=== PATIENT | female | born 1995 | race Caucasian/White ===

== ENCOUNTER 2018-06-19 10:59 | Day surgery (SDC) | payer OTHER, SELFPAY ==
[2018-06-14 12:35] VITALS: BMI 24.3
[2018-06-19] VITALS (7 sets, daily range): BP systolic 120–138; BP diastolic 79–96; PULSE 67–100; RESP 12–19; TEMP 36.3–37.1; O2SAT 96–100; BMI 24.3
--- NOTE | 2018-06-19 11:37 | SUR.PREOP ---
no glucose test needed per dr. hood
[2018-06-19] MEDS: LACTATED RINGERS 1,000 ML 42 ML IV ×2 (11:42→13:08)
--- NOTE | 2018-06-19 12:04 | PM.PREOP ---
Pre-operative Note Interval Note Pre-op Check: Yes History & Physical Reviewed by Physician, Yes Exam Performed and Yes History & Physical exam performed today by Physician Changes: No
--- NOTE | 2018-06-19 12:59 | SUR.OPER ---
Lithotomy on padded OR bed, head on pillow, arms secured tucked and gel padded. Legs secured in padded yellow fins stirrups.
[2018-06-19] MEDS: BUPIVACAINE 0.5% W/ EPI (PF) VIAL 30 ML INJ (13:05)
[2018-06-19] MEDS: PHENAZOPYRIDINE 100 MG TABLET PO (14:13)
[2018-06-19] MEDS: OXYCODONE/ACETAMINOPHEN 5/325 TABLET 1 TAB PO (14:13)
--- NOTE | 2018-06-19 14:14 | P.OP_ITS ---
Operative Date/Time/Diagnoses Date of procedure: 06/19/18 Time of procedure: 13:57 Pre-op diagnosis: 1. Chronic pelvic pain 2. Right para ovarian cyst 3. Irritable bladder Post-op diagnosis: same Procedure & Clinicians Procedure: Laparoscopic right paraovarian cystectomy [place] distention of the bladder Same procedure as scheduled: Yes Indications: Six month history of increasing lower abdominal pain, bloating, and urinary urgency and frequency Surgeon: Ángel Tom Senior Marketing Associate: Victorina Reynoso Anesthesia Type: General Operative Notes Findings: Examination under anesthesia revealed a normal sized anteverted uterus and normal adnexae Operative findings included a normal uterus, left tube and ovary, right tube and ovary and a 4 x 3 cm right paraovarian cyst. There was no evidence of endometriosis in either ovarian fossa, posterior or anterior cul-de-sac or ovary. The appendix was normal and the liver edge and gallbladder were normal. Closure Type: primary Specimen(s): none sent Applied: catheter Estimated Blood Loss (mL): 10 Blood products transfused: none Procedure in detail: The patient was brought to the operating room and placed supine on the operating table. She was given general oral endotracheal anesthesia and placed in low lithotomy stirrups. A time-out was performed. An examination under anesthesia was performed. A speculum was placed in her vagina and the cervix was grasped with a Hulka tenaculum. Attention was returned to the abdomen where the umbilicus was infiltrated with 8 cc of 0.5% Marcaine, and a stab incision was made in the umbilicus. Veress needle was introduced into the abdominal cavity and its position verified by hanging drop technique. The abdomen was insufflated to 2 L of carbon dioxide and the Veress needle was removed and replaced by the laparoscopic trocar and sleeve with the laparoscope in place allowing direct visualization of entry into the abdomen. Because of the finding of the right paraovarian cyst, right and left lower quadrant 5 mm trocars were placed lateral to the inferior epigastric vessels. Each site was infiltrated with 5 cc of 0.5% Marcaine, followed by a stab incision and placement of a 5 mm trocar under direct visualization. Laparoscopic scissors were used to coagulate and then puncture the para ovarian cyst allowing it to drain. When the rest of the pelvic anatomy was found to be normal the abdomen was desufflated to the extent possible and trocars were removed under direct visualization. Each trocar site was closed with 4 O Monocryl and covered with Dermabond after which attention was turned to the bladder where using a 3 mm cystoscope, the bladder was inspected. The Hulka tenaculum was removed. There was no evidence of Hunner's ulcers or obvious trabeculations. The bladder was hydro distended to 950 cc for 2 min at a pressure of 100 cm of water. Petechial hemorrhages were noted and the effluent was noted to be cloudy consistent with hematuria. The patient was then awakened and taken to the recovery room in stable condition. Complications: none Condition: stable Disposition: PACU Plan for aftercare: Home
--- NOTE | 2018-06-19 14:35 | SUR.PHASEII ---
PT TO PHASE 2, UP TO BR TO VOID, GAIT STEADY, TOLERATING PO FLUIDS WELL.
== END 2018-06-19 15:20 ==
PROVIDERS: Visit Provider Obstetrics & Gynecology
PROC: (CPT 49320; principal; 2018-06-19 12:15)
PROC: (CPT 58662; 2018-06-19 12:15)
DX: N83.201 Unspecified ovarian cyst, right side (principal); N32.89 Other specified disorders of bladder
CPT/HCPCS: 49322; 52260; J0330; J1100; J2405; J2704; J3010

== ENCOUNTER 2019-06-05 07:30 | Outpatient (RCR) | payer OTHER, SELFPAY ==
--- NOTE | 2019-01-23 09:39 | PT.OPPOC ---
Current Diagnoses Other bursitis of hip, right hip (01/23/19) Other ovarian cyst, right side (01/23/19) Pelvic and perineal pain (01/23/19) Provider Visit Care Team Role Provider Type Other Providers Specialty: Address: Phone: Fax: Email: Ángel Tom MD Attending Provider Non-Staff Specialty: CLINICAL TRIAL SPECIALIST Address: [address] [place] [address], [id number] Email: [email or web address] Plan Of Care PT-OP-T Assessment and Plan Start: 01/23/19 07:26 Freq: Status: Active Protocol: Document 01/23/19 07:30 AMB (Rec: 01/26/19 09:23 AMB [email or web address]) Physical Therapy Assessment Rehab Potential Rehabilitation Potential Good Evaluation Complexity Number of Personal Factors/Comorbidities 1-2 Number of Body Systems Impaired 3 Clinical Presentation at Evaluation Evolving Impairments Impairments Functional Activities Pain Strength Goals Three Impairment R buttock pain Short Term Goal (STG) Jaquelin will sit for 30 minutes with 3/10 pain or less . STG Duration 4 weeks Two Impairment Abdominal pain Short Term Goal (STG) Jaquelin will be independent with a self myofascial release program to address her abdominal pain and bloating. STG Duration 4 weeks Care Home Goal (LTG) Jaquelin will be able to engage in intercourse without abdominal pain. LTG Duration 8 weeks One Impairment Stress incontinence Short Term Goal (STG) Jaquelin will be independent with a pelvic floor strengthening program. STG Duration 4 weeks Care Home Goal (LTG) Jaquelin will sneeze without leaking urine. LTG Duration 8 weeks Assessment Summary Assessment Jaquelin attends physical therapy with multiple abdominal and pelvic impairments. First we will address the pain that radiates into her abdomen with palpation of the R levator ani and obterator internus, then we will need to strengthen her pelvic floor. Her sitting pain is likely a seperate issue, but with her SI assymmetries that is likely contributing to her pelvic floor weakness as well. Physical Therapy Plan Frequency and Duration Frequency of Treatment 1x/Week Duration of Treatment 10 weeks Plan of Care Start Date 01/23/19 Plan of Care End Date 04/03/19 Therapeutic Interventions Therapeutic Interventions Home Exercise Program Manual Therapy Neuromuscular Re-education Self-Care/Home Management Taping Therapeutic Activities Therapeutic Exercises Modalities Biofeedback Cold Pack/Ice Massage Electric Stimulation Hot Packs Next Visit Focus/Plan Next Note Type Treatment Note Next Visit Plan Manual therapy to release pelvic floor tightness, then address pelvic floor weakness, address SI/hamstring stability. Plan of Care Dates Plan of Care Start Date 01/23/19 Plan of Care End Date 04/03/19 Please Sign and Return: I have reviewed this Plan of Care and certify that the skilled therapy services above are required to meet the patient?s needs. Physician Signature Date Printed Name and Credentials Clinical Instructor Signature Printed Name and Credentials
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
--- NOTE | 2019-01-30 10:26 | PT.OTN ---
Current Diagnoses Other ovarian cyst, right side (01/30/19) Physical Therapy Treatment Note PT-OP-A Visit Information Start: 01/23/19 07:26 Freq: Status: Active Protocol: Document 01/30/19 07:30 AMB (Rec: 01/30/19 10:26 AMB [email or web address]) Out-Patient Physical Therapy Visit Information Visit Information Visit Type Treatment Note Visit Start Time 07:30 Visit Stop Time 08:15 Total Visit Minutes 45 Visit Number 2 PT-OP-B Current Condition Start: 01/23/19 07:26 Freq: Status: Active Protocol: Document 01/23/19 07:30 AMB (Rec: 01/25/19 16:04 AMB [email or web address]) Current Condition History of Current Condition Onset Date May 2018 Current Complaints abdominal pain, right ischial tuberosity pain, stress incontinence History of Current Condition Jaquelin attends physical therapy with history of laproscopy to remove an ovarian cyst. She felt that her pain was better after surgery for a few months, but it is back now. She states that she has a known cyst on her R fallopian tube but is unsure if she will be having surgery again due to insurance restrictions. She also notes a cramping sensation after urination that lasts for about 20 minutes. Seperately, she notices R ischial tuberosity pain with extended sitting or lying down that has been present since before her surgery. She does reports some small leaks or urine with sneeze/cough. She reports bloating but no fecal incontinence. No history of / has had difficulty getting . Reports while on control cyst continued to grow. 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 Functional Limitations- Recreation/ Jaquelin notes increased Hobbies abdominal pain after intercourse but denies pelvic floor/perineal pain Personal Factors Other Personal Factors That May Effect hypothyroid, difficulty Therapy/Recovery becoming PT-OP-C Subjective Start: 01/23/19 07:26 Freq: Status: Active Protocol: Document 01/30/19 07:30 AMB (Rec: 01/30/19 10:26 AMB [email or web address]) OP-PT Subjective Patient Comments Patient Comments Pt states she has been more mindful of her pain, and found that when she does a long hold, she tends to use her gluteals, and then gets pain radiating into the left abdomen. She likes the ILU massage, but has not noticed a change in her bowels. she still notices some pain after urination, but has been trying to go every 2 hours, and not hold it or go frequently. PT-OP-I Pelvic Floor Start: 01/23/19 07:26 Freq: Status: Active Protocol: Document 01/23/19 07:30 AMB (Rec: 01/26/19 07:29 AMB [email or web address]) Pelvic Floor Assessment Urine Pelvic Floor Surgery Yes: laproscopic ovarian cyst removal Urinary Symptoms Dysuria Urge Sensation Pain Leakage Size Small Leakage Cause Cough Sneeze Pelvic Clock Pelvic Clock 6-9 Hypertonic Tenderness Tightness Pelvic Clock 9-12 Guarding Hypertonic Tenderness Tightness Pelvic Clock Other Pain radiates into abdomen, pt denies pain at pelvic floor itself Contraction Ability Voluntary Contraction Weak Voluntary Relaxation Moderate Manual Muscle Testing Left 1 Manual Muscle Testing Right 1 Manual Muscle Testing Anterior 2 Manual Muscle Testing Posterior 1 PT-OP-J Posture/Palpation/Skin Start: 01/23/19 07:26 Freq: Status: Active Protocol: Document 01/23/19 07:30 AMB (Rec: 01/26/19 07:29 AMB [email or web address]) Posture Evaluation Comments Posture Comments R anterior rotation in supine. Palpation Assessment Location One Palpation Details Tenderness with palpation over lower abdomen. Denies specific tenderness over ishchial tuberosity, but does have tenderness on medial aspect of ichial tuberosity. PT-OP-K Range of Motion Start: 01/26/19 09:24 Freq: Status: Active Protocol: Document 01/23/19 07:30 AMB (Rec: 01/26/19 09:28 AMB [email or web address]) Hip Goniometric Range of Motion Hip ROM Limitations Comments Pt ROM WFL, no pain with hamstring stretch, but does note greater subjective feeling of stretch on the R. PT-OP-M Strength Start: 01/26/19 09:24 Freq: Status: Active Protocol: Document 01/23/19 07:30 AMB (Rec: 01/26/19 09:27 AMB [email or web address]) Hip Strength Hip Manual Muscle Testing Right Flexion (L2) 4+ Good+ Extension (S1) 4+ Good+ Abduction 4+ Good+ Adduction 4+ Good+ External Rotation 5 Normal Knee Strength Knee Manual Muscle Testing Right Flexion (S2) 5 Normal Extension (L3) 5 Normal Left Flexion (S2) 4 Good Extension (L3) 5 Normal Comments pain with knee flexion PT-OP-Q Treatments Start: 01/23/19 07:26 Freq: Status: Active Protocol: Document 01/30/19 07:30 AMB (Rec: 01/30/19 10:26 AMB [email or web address]) Therapeutic Exercises Supine Exercises 3 Supine Exercise Name instruction in relaxation with kegels 2 Supine Exercise Name piriformis stretch Reps/Minutes 30x2 1 Supine Exercise Name happy baby stretch Reps/Minutes 30x2 Manual Therapy Treatment Soft Tissue Mobilization 2 Body Location R obterator internus Mobilization Type Strumming Sustained Pressure Trigger Point Release 1 Body Location abdomen Comments bladder superiorly, ILU, hip flexor release Manual Traction Lumbar Details L leg pull Manual Techniques 1 Type MET for rotation Comments L leg long PT-OP-T Assessment and Plan Start: 01/23/19 07:26 Freq: Status: Active Protocol: Document 01/30/19 07:30 AMB (Rec: 01/30/19 10:26 AMB [email or web address]) Physical Therapy Assessment Assessment Summary Assessment Continued R obterator internus tightness, focus on relaxation. Discuss dietary triggers, pt could likely increase fiber intake, but otherwise is doing well to avoid common problem foods. Coccyx not painful per se but can get discomfort with sitting, asked to look at pelvic tilt when she gets coccyx pressure. Physical Therapy Plan Next Visit Focus/Plan Next Note Type Treatment Note Next Visit Plan Manual therapy to release pelvic floor tightness, then address pelvic floor weakness, address SI/hamstring stability.
--- NOTE | 2019-02-27 11:37 | PT.OTN ---
Current Diagnoses Other ovarian cyst, right side (02/27/19) Physical Therapy Treatment Note PT-OP-A Visit Information Start: 01/23/19 07:26 Freq: Status: Active Protocol: Document 02/27/19 07:30 AMB (Rec: 02/27/19 08:49 AMB [id number]) Out-Patient Physical Therapy Visit Information Visit Information Visit Type Treatment Note Visit Start Time 07:30 Visit Stop Time 08:15 Total Visit Minutes 45 Visit Number 3 PT-OP-B Current Condition Start: 01/23/19 07:26 Freq: Status: Active Protocol: Document 01/23/19 07:30 AMB (Rec: 01/25/19 16:04 AMB [email or web address]) Current Condition History of Current Condition Onset Date May 2018 Current Complaints abdominal pain, right ischial tuberosity pain, stress incontinence History of Current Condition Jaquelin attends physical therapy with history of laproscopy to remove an ovarian cyst. She felt that her pain was better after surgery for a few months, but it is back now. She states that she has a known cyst on her R fallopian tube but is unsure if she will be having surgery again due to insurance restrictions. She also notes a cramping sensation after urination that lasts for about 20 minutes. Seperately, she notices R ischial tuberosity pain with extended sitting or lying down that has been present since before her surgery. She does reports some small leaks or urine with sneeze/cough. She reports bloating but no fecal incontinence. No history of / has had difficulty getting . Reports while on control cyst continued to grow. 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 She has been trying to do Kegels and workout more. PT-OP-I Pelvic Floor Start: 01/23/19 07:26 Freq: Status: Active Protocol: Document 01/23/19 07:30 AMB (Rec: 01/26/19 07:29 AMB [email or web address]) Pelvic Floor Assessment Urine Pelvic Floor Surgery Yes: laproscopic ovarian cyst removal Urinary Symptoms Dysuria Urge Sensation Pain Leakage Size Small Leakage Cause Cough Sneeze Pelvic Clock Pelvic Clock 6-9 Hypertonic Tenderness Tightness Pelvic Clock 9-12 Guarding Hypertonic Tenderness Tightness Pelvic Clock Other Pain radiates into abdomen, pt denies pain at pelvic floor itself Contraction Ability Voluntary Contraction Weak Voluntary Relaxation Moderate Manual Muscle Testing Left 1 Manual Muscle Testing Right 1 Manual Muscle Testing Anterior 2 Manual Muscle Testing Posterior 1 PT-OP-J Posture/Palpation/Skin Start: 01/23/19 07:26 Freq: Status: Active Protocol: Document 01/23/19 07:30 AMB (Rec: 01/26/19 07:29 AMB [email or web address]) Posture Evaluation Comments Posture Comments R anterior rotation in supine. Palpation Assessment Location One Palpation Details Tenderness with palpation over lower abdomen. Denies specific tenderness over ishchial tuberosity, but does have tenderness on medial aspect of ichial tuberosity. PT-OP-K Range of Motion Start: 01/26/19 09:24 Freq: Status: Active Protocol: Document 01/23/19 07:30 AMB (Rec: 01/26/19 09:28 AMB [email or web address]) Hip Goniometric Range of Motion Hip ROM Limitations Comments Pt ROM WFL, no pain with hamstring stretch, but does note greater subjective feeling of stretch on the R. PT-OP-M Strength Start: 01/26/19 09:24 Freq: Status: Active Protocol: Document 01/23/19 07:30 AMB (Rec: 01/26/19 09:27 AMB [email or web address]) Hip Strength Hip Manual Muscle Testing Right Flexion (L2) 4+ Good+ Extension (S1) 4+ Good+ Abduction 4+ Good+ Adduction 4+ Good+ External Rotation 5 Normal Knee Strength Knee Manual Muscle Testing Right Flexion (S2) 5 Normal Extension (L3) 5 Normal Left Flexion (S2) 4 Good Extension (L3) 5 Normal Comments pain with knee flexion PT-OP-Q Treatments Start: 01/23/19 07:26 Freq: Status: Active Protocol: Document 02/27/19 07:30 AMB (Rec: 02/27/19 08:49 AMB [id number]) Manual Therapy Treatment Soft Tissue Mobilization 2 Body Location R obterator internus Mobilization Type Strumming Sustained Pressure Trigger Point Release Neuro Re-Education Treatment Other Activities 1 Details sEMG 5 sec hold, relax 10 Comments better control with vc PT-OP-T Assessment and Plan Start: 01/23/19 07:26 Freq: Status: Active Protocol: Document 02/27/19 07:30 AMB (Rec: 02/27/19 08:49 AMB [id number]) Physical Therapy Assessment Assessment Summary Assessment Pt is having surgery in 2 weeks for her fallopian tube. MD wants to make sure that her pelvic floor is strong enough with , especially since she already has stress incontinence. Pt's strength was better today. 5 baseline, 20 max. Pt continues to have right sided tightness more than left, vended dilator to help stretch out right side. Physical Therapy Plan Next Visit Focus/Plan Next Note Type Treatment Note Next Visit Plan Manual therapy to release pelvic floor tightness, then address pelvic floor weakness, address SI/hamstring stability.
--- NOTE | 2019-03-07 16:06 | PT.OTN ---
Current Diagnoses Other ovarian cyst, right side (03/07/19) Physical Therapy Treatment Note PT-OP-A Visit Information Start: 01/23/19 07:26 Freq: Status: Active Protocol: Document 03/07/19 07:30 AMB (Rec: 03/07/19 08:16 AMB [id number]) Out-Patient Physical Therapy Visit Information Visit Information Visit Type Treatment Note Visit Start Time 07:30 Visit Stop Time 08:15 Total Visit Minutes 45 Visit Number 4 PT-OP-B Current Condition Start: 01/23/19 07:26 Freq: Status: Active Protocol: Document 01/23/19 07:30 AMB (Rec: 01/25/19 16:04 AMB [email or web address]) Current Condition History of Current Condition Onset Date May 2018 Current Complaints abdominal pain, right ischial tuberosity pain, stress incontinence History of Current Condition Jaquelin attends physical therapy with history of laproscopy to remove an ovarian cyst. She felt that her pain was better after surgery for a few months, but it is back now. She states that she has a known cyst on her R fallopian tube but is unsure if she will be having surgery again due to insurance restrictions. She also notes a cramping sensation after urination that lasts for about 20 minutes. Seperately, she notices R ischial tuberosity pain with extended sitting or lying down that has been present since before her surgery. She does reports some small leaks or urine with sneeze/cough. She reports bloating but no fecal incontinence. No history of / has had difficulty getting . Reports while on control cyst continued to grow. 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 PT-OP-I Pelvic Floor Start: 01/23/19 07:26 Freq: Status: Active Protocol: Document 01/23/19 07:30 AMB (Rec: 01/26/19 07:29 AMB [email or web address]) Pelvic Floor Assessment Urine Pelvic Floor Surgery Yes: laproscopic ovarian cyst removal Urinary Symptoms Dysuria Urge Sensation Pain Leakage Size Small Leakage Cause Cough Sneeze Pelvic Clock Pelvic Clock 6-9 Hypertonic Tenderness Tightness Pelvic Clock 9-12 Guarding Hypertonic Tenderness Tightness Pelvic Clock Other Pain radiates into abdomen, pt denies pain at pelvic floor itself Contraction Ability Voluntary Contraction Weak Voluntary Relaxation Moderate Manual Muscle Testing Left 1 Manual Muscle Testing Right 1 Manual Muscle Testing Anterior 2 Manual Muscle Testing Posterior 1 PT-OP-J Posture/Palpation/Skin Start: 01/23/19 07:26 Freq: Status: Active Protocol: Document 01/23/19 07:30 AMB (Rec: 01/26/19 07:29 AMB [email or web address]) Posture Evaluation Comments Posture Comments R anterior rotation in supine. Palpation Assessment Location One Palpation Details Tenderness with palpation over lower abdomen. Denies specific tenderness over ishchial tuberosity, but does have tenderness on medial aspect of ichial tuberosity. PT-OP-K Range of Motion Start: 01/26/19 09:24 Freq: Status: Active Protocol: Document 01/23/19 07:30 AMB (Rec: 01/26/19 09:28 AMB [email or web address]) Hip Goniometric Range of Motion Hip ROM Limitations Comments Pt ROM WFL, no pain with hamstring stretch, but does note greater subjective feeling of stretch on the R. PT-OP-M Strength Start: 01/26/19 09:24 Freq: Status: Active Protocol: Document 01/23/19 07:30 AMB (Rec: 01/26/19 09:27 AMB [email or web address]) Hip Strength Hip Manual Muscle Testing Right Flexion (L2) 4+ Good+ Extension (S1) 4+ Good+ Abduction 4+ Good+ Adduction 4+ Good+ External Rotation 5 Normal Knee Strength Knee Manual Muscle Testing Right Flexion (S2) 5 Normal Extension (L3) 5 Normal Left Flexion (S2) 4 Good Extension (L3) 5 Normal Comments pain with knee flexion PT-OP-Q Treatments Start: 01/23/19 07:26 Freq: Status: Active Protocol: Document 03/07/19 07:30 AMB (Rec: 03/07/19 16:06 AMB [email or web address]) Therapeutic Exercises Supine Exercises 5 Supine Exercise Name hip flexor stretch Comments 30x2 4 Supine Exercise Name hamstring curl with pf relaxation Comments 10 2 Supine Exercise Name piriformis stretch Reps/Minutes 30x2 1 Supine Exercise Name happy baby stretch Reps/Minutes 30x2 Manual Therapy Treatment Soft Tissue Mobilization 2 Body Location R obterator internus Mobilization Type Strumming Sustained Pressure Trigger Point Release Comments external release only Manual Techniques 2 Type strain counterstrain Comments for adductors and hamstring 1 Type MET for rotation Comments R posterior rotation fix PT-OP-T Assessment and Plan Start: 01/23/19 07:26 Freq: Status: Active Protocol: Document 03/07/19 07:30 AMB (Rec: 03/07/19 16:06 AMB [email or web address]) Physical Therapy Assessment Assessment Summary Assessment Pt with pain reproduction of actively using hamstring, but also at pubic rami and medial ischial tuberosity with palpation. Reinforced functionally dannielle pelvic floor and also working on R sided relaxation. Pt felt better after strain counterstrain. Physical Therapy Plan Next Visit Focus/Plan Next Note Type Treatment Note Next Visit Plan Pt on hold until after her surgery for her fallopian tube . She can then call back if continuing to have right sided ischial tuberosity pain. Probably decrease internal work as she will be actively trying to get .
--- NOTE | 2019-05-29 07:30 | PT.OTN ---
Current Diagnoses Other ovarian cyst, right side (05/29/19) Physical Therapy Treatment Note PT-OP-A Visit Information Start: 01/23/19 07:26 Freq: Status: Active Protocol: Document 05/29/19 07:30 AMB (Rec: 05/30/19 06:32 AMB [email or web address]) Out-Patient Physical Therapy Visit Information Visit Information Visit Type Treatment Note Visit Start Time 07:30 Visit Stop Time 08:15 Total Visit Minutes 45 Visit Number 5 PT-OP-B Current Condition Start: 01/23/19 07:26 Freq: Status: Active Protocol: Document 01/23/19 07:30 AMB (Rec: 01/25/19 16:04 AMB [email or web address]) Current Condition History of Current Condition Onset Date May 2018 Current Complaints abdominal pain, right ischial tuberosity pain, stress incontinence History of Current Condition Jaquelin attends physical therapy with history of laproscopy to remove an ovarian cyst. She felt that her pain was better after surgery for a few months, but it is back now. She states that she has a known cyst on her R fallopian tube but is unsure if she will be having surgery again due to insurance restrictions. She also notes a cramping sensation after urination that lasts for about 20 minutes. Seperately, she notices R ischial tuberosity pain with extended sitting or lying down that has been present since before her surgery. She does reports some small leaks or urine with sneeze/cough. She reports bloating but no fecal incontinence. No history of / has had difficulty getting . Reports while on control cyst continued to grow. 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 She no longer has abdominal pain after sex, but she does note continued bloating depedent upon food choices. She has not had any urinary leaking. She is concerned about a possible diastasis recti. PT-OP-I Pelvic Floor Start: 01/23/19 07:26 Freq: Status: Active Protocol: Document 01/23/19 07:30 AMB (Rec: 01/26/19 07:29 AMB [email or web address]) Pelvic Floor Assessment Urine Pelvic Floor Surgery Yes: laproscopic ovarian cyst removal Urinary Symptoms Dysuria Urge Sensation Pain Leakage Size Small Leakage Cause Cough Sneeze Pelvic Clock Pelvic Clock 6-9 Hypertonic Tenderness Tightness Pelvic Clock 9-12 Guarding Hypertonic Tenderness Tightness Pelvic Clock Other Pain radiates into abdomen, pt denies pain at pelvic floor itself Contraction Ability Voluntary Contraction Weak Voluntary Relaxation Moderate Manual Muscle Testing Left 1 Manual Muscle Testing Right 1 Manual Muscle Testing Anterior 2 Manual Muscle Testing Posterior 1 PT-OP-J Posture/Palpation/Skin Start: 01/23/19 07:26 Freq: Status: Active Protocol: Document 01/23/19 07:30 AMB (Rec: 01/26/19 07:29 AMB [email or web address]) Posture Evaluation Comments Posture Comments R anterior rotation in supine. Palpation Assessment Location One Palpation Details Tenderness with palpation over lower abdomen. Denies specific tenderness over ishchial tuberosity, but does have tenderness on medial aspect of ichial tuberosity. PT-OP-K Range of Motion Start: 01/26/19 09:24 Freq: Status: Active Protocol: Document 01/23/19 07:30 AMB (Rec: 01/26/19 09:28 AMB [email or web address]) Hip Goniometric Range of Motion Hip ROM Limitations Comments Pt ROM WFL, no pain with hamstring stretch, but does note greater subjective feeling of stretch on the R. PT-OP-M Strength Start: 01/26/19 09:24 Freq: Status: Active Protocol: Document 01/23/19 07:30 AMB (Rec: 01/26/19 09:27 AMB [email or web address]) Hip Strength Hip Manual Muscle Testing Right Flexion (L2) 4+ Good+ Extension (S1) 4+ Good+ Abduction 4+ Good+ Adduction 4+ Good+ External Rotation 5 Normal Knee Strength Knee Manual Muscle Testing Right Flexion (S2) 5 Normal Extension (L3) 5 Normal Left Flexion (S2) 4 Good Extension (L3) 5 Normal Comments pain with knee flexion PT-OP-Q Treatments Start: 01/23/19 07:26 Freq: Status: Active Protocol: Document 05/29/19 07:30 AMB (Rec: 06/01/19 11:06 AMB [email or web address]) Therapeutic Exercises Supine Exercises 6 Supine Exercise Name post pelvic tilt Reps/Minutes 10 3 Supine Exercise Name table top alt bent leg lower Comments with PF and TrA Sitting Exercises 1 Sitting Exercise Name single leg deadlift Reps/Minutes 10 PT-OP-T Assessment and Plan Start: 01/23/19 07:26 Freq: Status: Active Protocol: Document 05/29/19 07:30 AMB (Rec: 06/01/19 08:58 AMB [email or web address]) Physical Therapy Assessment Goals Three Impairment R buttock pain Short Term Goal (STG) Jaquelin will sit for 30 minutes with 3/10 pain or less . STG Duration NOT MET Two Impairment Abdominal pain Short Term Goal (STG) Jaquelin will be independent with a self myofascial release program to address her abdominal pain and bloating. STG Duration MET Supply Assistant Goal (LTG) Jaquelin will be able to engage in intercourse without abdominal pain. LTG Duration MET One Impairment Stress incontinence Short Term Goal (STG) Jaquelin will be independent with a pelvic floor strengthening program. STG Duration MET Supply Assistant Goal (LTG) Jaquelin will sneeze without leaking urine. LTG Duration MET Assessment Summary Assessment Jaquelin's symptoms have significantly improved since her surgery. She continues to have her hamstring pain, which limits her sitting, although her return to exercise is seemingly improving this. We will continue to work on her pelvic floor and transversus abdominus strength and coordination as well as hamstring pain for a few more visits so she is independent with a program. Physical Therapy Plan Frequency and Duration Frequency of Treatment 1x/Week Duration of Treatment 4 weeks Plan of Care Start Date 05/29/19 Plan of Care End Date 06/26/19 Therapeutic Interventions Therapeutic Interventions Home Exercise Program Manual Therapy Neuromuscular Re-education Self-Care/Home Management Taping Therapeutic Activities Therapeutic Exercises Modalities Biofeedback Cold Pack/Ice Massage Electric Stimulation Hot Packs Next Visit Focus/Plan Next Note Type Treatment Note Next Visit Plan Progress TrA and pelvic floor stabilization
--- NOTE | 2019-05-29 12:00 | PT.OPPOC ---
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 STG Duration NOT MET Two Impairment Abdominal pain Short Term Goal (STG) Jaquelin will be independent with a self myofascial release program to address her abdominal pain and bloating. STG Duration MET Jail Goal (LTG) Jaquelin will be able to engage in intercourse without abdominal pain. LTG Duration MET One Impairment Stress incontinence Short Term Goal (STG) Jaquelin will be independent with a pelvic floor strengthening program. STG Duration MET Rocket Engine Tester Goal (LTG) Jaquelin will sneeze without leaking urine. LTG Duration MET Assessment Summary Assessment Jaquelin's symptoms have significantly improved since her surgery. She continues to have her hamstring pain, which limits her sitting, although her return to exercise is seemingly improving this. We will continue to work on her pelvic floor and transversus abdominus strength and coordination as well as hamstring pain for a few more visits so she is independent with a program. Physical Therapy Plan Frequency and Duration Frequency of Treatment 1x/Week Duration of Treatment 4 weeks Plan of Care Start Date 05/29/19 Plan of Care End Date 06/26/19 Therapeutic Interventions Therapeutic Interventions Home Exercise Program Manual Therapy Neuromuscular Re-education Self-Care/Home Management Taping Therapeutic Activities Therapeutic Exercises Modalities Biofeedback Cold Pack/Ice Massage Electric Stimulation Hot Packs Next Visit Focus/Plan Next Note Type Treatment Note Next Visit Plan Progress TrA and pelvic floor stabilization Plan of Care Dates Plan of Care Start Date 05/29/19 Plan of Care End Date 07/30/19 Please Sign and Return: I have reviewed this Plan of Care and certify that the skilled therapy services above are required to meet the patient?s needs. Physician Signature Date Printed Name and Credentials Clinical Instructor Signature Printed Name and Credentials
--- NOTE | 2019-06-05 15:57 | PT.OTN ---
Current Diagnoses Other ovarian cyst, right side (06/05/19) Physical Therapy Treatment Note PT-OP-A Visit Information Start: 01/23/19 07:26 Freq: Status: Active Protocol: Document 06/05/19 07:30 AMB (Rec: 06/05/19 08:07 AMB [id number]) Out-Patient Physical Therapy Visit Information Visit Information Visit Type Treatment Note Visit Start Time 07:30 Visit Stop Time 08:15 Total Visit Minutes 45 Visit Number 6 PT-OP-B Current Condition Start: 01/23/19 07:26 Freq: Status: Active Protocol: Document 01/23/19 07:30 AMB (Rec: 01/25/19 16:04 AMB [email or web address]) Current Condition History of Current Condition Onset Date May 2018 Current Complaints abdominal pain, right ischial tuberosity pain, stress incontinence History of Current Condition Jaquelin attends physical therapy with history of laproscopy to remove an ovarian cyst. She felt that her pain was better after surgery for a few months, but it is back now. She states that she has a known cyst on her R fallopian tube but is unsure if she will be having surgery again due to insurance restrictions. She also notes a cramping sensation after urination that lasts for about 20 minutes. Seperately, she notices R ischial tuberosity pain with extended sitting or lying down that has been present since before her surgery. She does reports some small leaks or urine with sneeze/cough. She reports bloating but no fecal incontinence. No history of / has had difficulty getting . Reports while on control cyst continued to grow. 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 PT-OP-I Pelvic Floor Start: 01/23/19 07:26 Freq: Status: Active Protocol: Document 01/23/19 07:30 AMB (Rec: 01/26/19 07:29 AMB [email or web address]) Pelvic Floor Assessment Urine Pelvic Floor Surgery Yes: laproscopic ovarian cyst removal Urinary Symptoms Dysuria Urge Sensation Pain Leakage Size Small Leakage Cause Cough Sneeze Pelvic Clock Pelvic Clock 6-9 Hypertonic Tenderness Tightness Pelvic Clock 9-12 Guarding Hypertonic Tenderness Tightness Pelvic Clock Other Pain radiates into abdomen, pt denies pain at pelvic floor itself Contraction Ability Voluntary Contraction Weak Voluntary Relaxation Moderate Manual Muscle Testing Left 1 Manual Muscle Testing Right 1 Manual Muscle Testing Anterior 2 Manual Muscle Testing Posterior 1 PT-OP-J Posture/Palpation/Skin Start: 01/23/19 07:26 Freq: Status: Active Protocol: Document 01/23/19 07:30 AMB (Rec: 01/26/19 07:29 AMB [email or web address]) Posture Evaluation Comments Posture Comments R anterior rotation in supine. Palpation Assessment Location One Palpation Details Tenderness with palpation over lower abdomen. Denies specific tenderness over ishchial tuberosity, but does have tenderness on medial aspect of ichial tuberosity. PT-OP-K Range of Motion Start: 01/26/19 09:24 Freq: Status: Active Protocol: Document 01/23/19 07:30 AMB (Rec: 01/26/19 09:28 AMB [email or web address]) Hip Goniometric Range of Motion Hip ROM Limitations Comments Pt ROM WFL, no pain with hamstring stretch, but does note greater subjective feeling of stretch on the R. PT-OP-M Strength Start: 01/26/19 09:24 Freq: Status: Active Protocol: Document 01/23/19 07:30 AMB (Rec: 01/26/19 09:27 AMB [email or web address]) Hip Strength Hip Manual Muscle Testing Right Flexion (L2) 4+ Good+ Extension (S1) 4+ Good+ Abduction 4+ Good+ Adduction 4+ Good+ External Rotation 5 Normal Knee Strength Knee Manual Muscle Testing Right Flexion (S2) 5 Normal Extension (L3) 5 Normal Left Flexion (S2) 4 Good Extension (L3) 5 Normal Comments pain with knee flexion PT-OP-Q Treatments Start: 01/23/19 07:26 Freq: Status: Active Protocol: Document 06/05/19 07:30 AMB (Rec: 06/05/19 08:07 AMB [id number]) Therapeutic Exercises Supine Exercises 7 Supine Exercise Name post pelvic tilt leg raise Reps/Minutes 10 6 Supine Exercise Name bridge with therapy ball Reps/Minutes 10 3 Supine Exercise Name table top alt bent leg lower Comments with PF and TrA Standing Exercises 1 Standing Exercise Name squats Reps/Minutes 10 PT-OP-T Assessment and Plan Start: 01/23/19 07:26 Freq: Status: Active Protocol: Document 06/05/19 07:30 AMB (Rec: 06/05/19 15:53 AMB [email or web address]) Physical Therapy Assessment Assessment Summary Assessment Added squats to HEP- pt has been hesitant to exercise hamstrings due to fear of pain . Can try squats and see how she tolerates. Physical Therapy Plan Next Visit Focus/Plan Next Note Type Discharge Summary Next Visit Plan Possible d/c next visit if still doing well.
--- NOTE | 2019-06-22 10:20 | PT.OPDS ---
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 She felt that her pain was better after surgery for a few months, but it is back now. She states that she has a known cyst on her R fallopian tube but is unsure if she will be having surgery again due to insurance restrictions. She also notes a cramping sensation after urination that lasts for about 20 minutes. Seperately, she notices R ischial tuberosity pain with extended sitting or lying down that has been present since before her surgery. She does reports some small leaks or urine with sneeze/cough. She reports bloating but no fecal incontinence. No history of / has had difficulty getting . Reports while on control cyst continued to grow. 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 PT-OP-I Pelvic Floor Start: 01/23/19 07:26 Freq: Status: Active Protocol: Document 01/23/19 07:30 AMB (Rec: 01/26/19 07:29 AMB [email or web address]) Pelvic Floor Assessment Urine Pelvic Floor Surgery Yes: laproscopic ovarian cyst removal Urinary Symptoms Dysuria Urge Sensation Pain Leakage Size Small Leakage Cause Cough Sneeze Pelvic Clock Pelvic Clock 6-9 Hypertonic Tenderness Tightness Pelvic Clock 9-12 Guarding Hypertonic Tenderness Tightness Pelvic Clock Other Pain radiates into abdomen, pt denies pain at pelvic floor itself Contraction Ability Voluntary Contraction Weak Voluntary Relaxation Moderate Manual Muscle Testing Left 1 Manual Muscle Testing Right 1 Manual Muscle Testing Anterior 2 Manual Muscle Testing Posterior 1 PT-OP-J Posture/Palpation/Skin Start: 01/23/19 07:26 Freq: Status: Active Protocol: Document 01/23/19 07:30 AMB (Rec: 01/26/19 07:29 AMB [email or web address]) Posture Evaluation Comments Posture Comments R anterior rotation in supine. Palpation Assessment Location One Palpation Details Tenderness with palpation over lower abdomen. Denies specific tenderness over ishchial tuberosity, but does have tenderness on medial aspect of ichial tuberosity. PT-OP-K Range of Motion Start: 01/26/19 09:24 Freq: Status: Active Protocol: Document 01/23/19 07:30 AMB (Rec: 01/26/19 09:28 AMB [email or web address]) Hip Goniometric Range of Motion Hip ROM Limitations Comments Pt ROM WFL, no pain with hamstring stretch, but does note greater subjective feeling of stretch on the R. PT-OP-M Strength Start: 01/26/19 09:24 Freq: Status: Active Protocol: Document 01/23/19 07:30 AMB (Rec: 01/26/19 09:27 AMB [email or web address]) Hip Strength Hip Manual Muscle Testing Right Flexion (L2) 4+ Good+ Extension (S1) 4+ Good+ Abduction 4+ Good+ Adduction 4+ Good+ External Rotation 5 Normal Knee Strength Knee Manual Muscle Testing Right Flexion (S2) 5 Normal Extension (L3) 5 Normal Left Flexion (S2) 4 Good Extension (L3) 5 Normal Comments pain with knee flexion PT-OP-T Assessment and Plan Start: 01/23/19 07:26 Freq: Status: Active Protocol: Document 06/22/19 10:14 AMB (Rec: 06/22/19 10:20 AMB [email or web address]) Physical Therapy Assessment Goals Three Impairment R buttock pain Short Term Goal (STG) Jaquelin will sit for 30 minutes with 3/10 pain or less . STG Duration PROGRESS MADE- intermittent Two Impairment Abdominal pain Short Term Goal (STG) Jaquelin will be independent with a self myofascial release program to address her abdominal pain and bloating. STG Duration MET Wrapper Counter Goal (LTG) Jaquelin will be able to engage in intercourse without abdominal pain. LTG Duration MET One Impairment Stress incontinence Short Term Goal (STG) Jaquelin will be independent with a pelvic floor strengthening program. STG Duration MET Long-Term Goal (LTG) Jaquelin will sneeze without leaking urine. LTG Duration MET Assessment Summary Assessment Jaquelin needed to cancel her last remaining appointment because of a work conflict. Called her and she is ok with discharge at this time. She is continuing to feel much better after her surgery, and has returned to working out to independently decrease her ischial tuberosity pain. Physical Therapy Plan Discharge Physical Therapy Discharge Reasons Goals Met
== END 2019-06-22 13:35 | disposition home or self-care (01) ==
LOC: PHYS 07:30
PROVIDERS: Visit Provider Obstetrics & Gynecology
DX: N83.291 Other ovarian cyst, right side (principal)
CPT/HCPCS: 97110; 97112; 97140; 97162

== ENCOUNTER → 2019-08-08 15:45 | Outpatient (CLI) | payer OTHER, SELFPAY ==
[2019-08-08 16:33] LABS: Free T4, Direct Thyroxine 1.16 ng/dL (0.78-2.19)
[2019-08-08 16:47] LABS: Thyroid Stimulating Hormone 0.72 uIU/mL (0.47-4.68)
== END ==
PROVIDERS: PCP Nurse Practitioner Family; Visit Provider Nurse Practitioner Family
DX: E03.9 Hypothyroidism, unspecified (principal)
CPT/HCPCS: 36415; 84439; 84443

== ENCOUNTER → 2019-08-15 17:29 | Outpatient (CLI) | payer OTHER, SELFPAY ==
[2019-08-15 17:53] LABS: Add Manual Diff / Slide Review NO; Basophils Absolute Auto 100 /uL (0-100); Basophils Percent Auto 0.6 % (0-2); Eosinophils Absolute Auto 300 /uL (0-450); Eosinophils Percent Auto 2.5 % (2-4); Hematocrit 39.6 % (36-46); Hemoglobin 13.6 g/dL (12.0-16.0); Lymphocytes Absolute Auto 3200 /uL (1100-4500); Lymphocytes Percent Auto 27.6 % (25-40); Mean Corpuscular HGB Conc 34.3 % (30-36); Mean Corpuscular Hemoglobin 31.7 PG (26-34); Mean Corpuscular Volume 92.5 fL (80-100); Monocytes Absolute Auto 600 /uL (0-900); Monocytes Percent Auto 5.5 % (3-14); Neutrophils Absolute Auto 7400 /uL (1500-7000); Neutrophils Percent Auto 63.8 % (50-75); Platelet Count 212 X10^3/uL (150-400); Red Blood Cell Count 4.28 X10^6/uL (4.0-5.2); Red Cell Distribution Width 12.2 % (11.6-14.8); White Blood Cell Count 11.5 X10^3/uL (4.5-11.0)
[2019-08-15 19:10] LABS: Appearance Urine UA CLEAR; Bilirubin Urine UA NEGATIVE (NEGATIVE); Color Urine UA YELLOW; Glucose Urine UA NEGATIVE (Negative); Ketones Urine UA NEGATIVE (NEGATIVE); Leukocyte Esterase Urine UA NEGATIVE (NEGATIVE); Nitrite Urine UA NEGATIVE (Negative); Occult Blood Urine UA NEGATIVE (Negative); Protein Urine UA NEGATIVE (Negative); Specific Gravity Urine UA <=1.005 (1.000-1.035); Urobilinogen Urine UA 0.2 E.U./dL (0.2)
[2019-08-15 20:55] LABS: HIV 1 & 2 Ab/Ag 4th Gen Combo NEGATIVE (NEGATIVE); Hep C Virus Ab w/Reflex Quant NEGATIVE s/c (NEGATIVE); Hepatitis B Surface Antigen NEGATIVE s/c (NEGATIVE); Rubella Antibody IgG 34.6 IU/mL (>15)
[2019-08-17 22:36] LABS: RPR Screen Nonreactive (Nonreactive)
== END ==
PROVIDERS: PCP Nurse Practitioner Family; Visit Provider Specialist
DX: Z34.01 Encounter for supervision of normal first pregnancy, first trimester (principal)
CPT/HCPCS: 36415; 80055; 81003; 86787; 86803; 86850; 86900; 86901; 87086; 87389

== ENCOUNTER → 2019-08-20 12:32 | Outpatient (CLI) | payer OTHER, SELFPAY ==
[2019-08-20 14:56] LABS: HCG Quantitative /Beta subunit 158600 mIU/mL
== END ==
PROVIDERS: PCP Nurse Practitioner Family; Visit Provider Specialist
DX: O20.8 Other hemorrhage in early pregnancy (principal)
CPT/HCPCS: 36415; 84702

== ENCOUNTER → 2019-08-22 14:40 | Outpatient (CLI) | payer OTHER, SELFPAY ==
[2019-08-22 16:52] LABS: HCG Quantitative /Beta subunit 127120 mIU/mL
== END ==
PROVIDERS: PCP Nurse Practitioner Family; Visit Provider Specialist
DX: O20.8 Other hemorrhage in early pregnancy (principal)
CPT/HCPCS: 36415; 84702

== ENCOUNTER → 2019-11-08 08:38 | Outpatient (CLI) | payer OTHER, SELFPAY ==
--- NOTE | 2019-11-08 08:40 | DI.US.S_ITS ---
PROCEDURE: US OB >= 14 WEEKS FETUS INDICATIONS: ANATOMY SCAN OUTSIDE/PRIOR DATING DATA: Last menstrual period (LMP): 06/11/19. LMP-based estimated date of delivery (EFRAÍN): 03/18/19. First dating scan (date and location): 08/15/19. Estimated date of delivery (EFRAÍN) from first dating scan: 03/18/19. TECHNIQUE: Real-time scanning was performed of the fetus, with image documentation and biometric measurements. COMPARISON: [facility], , OB >= 14 WEEKS FETUS, 10/11/2019, 8:14. FINDINGS: General: A single living intrauterine gestation is present. Presentation: Variable. Placenta: Placental position is posterior, without previa. Amniotic fluid index: 21.7 cm, normal range is 5-24 cm. heart rate: 137 beats per minute. Maternal cervical canal: 3.8 cm cm long. Normal lower limit is 2.5 cm. Report any funneling of internal cervical os: % of canal length, shape (U or V), width or any U-shaped funneling. biometrics: Biparietal diameter: 21 weeks 3 days Head circumference: 21 weeks 5 days Abdominal circumference: 22 weeks Femur length: 20 weeks 3 days Estimated gestational age from initial scan: 21 weeks 2 days Composite gestational age from present scan: 21 weeks 3 days Estimated weight and percentile: 450 g; 46 percentile Measurement variability for biometric dating: +/- 7 days from 14 weeks to 15 weeks 6 days gestation, +/- 10 days from 16 weeks to 21 weeks 6 days gestation, +/- 2 weeks from 22 weeks to 27 weeks 6 days gestation, +/- 3 weeks for 28 weeks gestation or later. weight reference: 4500 g or EFW >90/95% is considered macrosomia or large for gestational age. EFW <10% is small for gestational age. EFW 5% or less is considered intra-uterine growth restriction. Anatomic survey: Neuro: Ventricles are non-dilated at less than 10 mm. Cisterna magna is normal at 3-11 mm. Cerebellum is normal in size and morphology. Nuchal skin fold: Normal at less than 6 mm between 14-21 weeks gestational age. Face: Nose and lips, facial profile are normal. Spine: No evidence for spina bifida. Heart: 4-chambered heart is present, with normal ventricular outflow tracts. Diaphragm: Diaphragm is intact. Stomach: Left-sided stomach is present. Kidneys: No hydronephrosis. Normal is less than 5 mm in 2nd trimester, less than 7 mm in 3rd trimester. Cord: 3-vessel cord has orthotopic insertion. Bladder: Normal in size. Extremities: All 4 extremities identified. IMPRESSION: 1. Normal interval growth. 2. Normal anatomic survey. Dictated by: Michael RODRIGUEZ Interpreted: Ruchi Corona MD on 11/08/2019 at 10:43 Approved by: Ruchi Corona M.D. on 11/09/2019 at 7:06
== END ==
PROVIDERS: PCP Nurse Practitioner Family; Visit Provider Specialist
DX: Z34.02 Encounter for supervision of normal first pregnancy, second trimester (principal); Z3A.21 21 weeks gestation of pregnancy
CPT/HCPCS: 76811

== ENCOUNTER → 2019-12-10 12:36 | Outpatient (CLI) | payer OTHER, SELFPAY ==
[2019-12-10 15:06] LABS: Hematocrit 35.6 % (36-46); Hemoglobin 12.3 g/dL (12.0-16.0)
[2019-12-10 15:46] LABS: Free T4, Direct Thyroxine 1.07 ng/dL (0.78-2.19)
[2019-12-10 16:00] LABS: Thyroid Stimulating Hormone 0.43 uIU/mL (0.47-4.68)
[2019-12-10 16:05] LABS: GTT (PREG) 1 Hour PP 50gm Dose 114 mg/dL (76-139)
== END ==
PROVIDERS: PCP Nurse Practitioner Family; Visit Provider Specialist
DX: Z34.02 Encounter for supervision of normal first pregnancy, second trimester (principal); E03.9 Hypothyroidism, unspecified
CPT/HCPCS: 36415; 82950; 84439; 84443; 85014; 85018

== ENCOUNTER 2020-02-04 09:36 | Outpatient (CLI) | payer OTHER, SELFPAY ==
[2020-02-04 10:45] LABS: Appearance Urine UA SL CLOUDY; Bilirubin Urine UA NEGATIVE (NEGATIVE); Color Urine UA YELLOW; Glucose Urine UA NEGATIVE (Negative); Ketones Urine UA NEGATIVE (NEGATIVE); Leukocyte Esterase Urine UA 1+ (NEGATIVE); Nitrite Urine UA NEGATIVE (Negative); Occult Blood Urine UA NEGATIVE (Negative); Protein Urine UA NEGATIVE (Negative); Urobilinogen Urine UA 0.2 E.U./dL (0.2)
[2020-02-04 10:56] LABS: RBC Urine None Seen (0-5/HPF); pH Urine UA 6.5 (4.5-8.0)
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
[2020-02-04 11:17] LABS: Amorphous Sediment Urine 4+; Bacteria Urine Moderate (10-30); Squamous Epithelial Cell Urine 10-30 /HPF (0-5/HPF); WBC Urine 1-5/HPF (0-5/HPF)
== END 2020-02-04 11:10 | disposition home or self-care (01) ==
LOC: LABOR 09:48 → OB 14:59
PROVIDERS: Specialist; PCP Nurse Practitioner Family; Referring Provider Nurse Practitioner Family; Visit Provider Nurse Practitioner Family
DX: O26.893 Other specified pregnancy related conditions, third trimester (principal); N89.8 Other specified noninflammatory disorders of vagina; Z3A.34 34 weeks gestation of pregnancy
CPT/HCPCS: 59025; 81003; 81015; 84112; G0378; G0379

== ENCOUNTER → 2020-02-22 08:53 | Outpatient (CLI) | payer OTHER, SELFPAY ==
[2020-02-23 08:29] LABS: Strep Grp B PCR NEG for Grp B Strep
== END ==
PROVIDERS: PCP Nurse Practitioner Family; Visit Provider Specialist
DX: Z34.03 Encounter for supervision of normal first pregnancy, third trimester (principal); Z3A.36 36 weeks gestation of pregnancy
CPT/HCPCS: 87653

== ENCOUNTER → 2020-02-22 09:29 | Outpatient (CLI) | payer OTHER, SELFPAY ==
[2020-02-22 10:38] LABS: Free T4, Direct Thyroxine 0.99 ng/dL (0.78-2.19)
[2020-02-22 10:50] LABS: Thyroid Stimulating Hormone 0.49 uIU/mL (0.47-4.68)
== END ==
PROVIDERS: PCP Nurse Practitioner Family; Referring Provider Specialist; Visit Provider Specialist
DX: O99.283 Endocrine, nutritional and metabolic diseases complicating pregnancy, third trimester (principal); E03.9 Hypothyroidism, unspecified; Z3A.36 36 weeks gestation of pregnancy
CPT/HCPCS: 84439; 84443; 87653

== ENCOUNTER 2020-03-19 15:34 | Outpatient (CLI) | payer OTHER, SELFPAY ==
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
== END 2020-03-19 15:57 | disposition home or self-care (01) ==
LOC: LABOR 15:46 → OB 03-20 13:25
PROVIDERS: PCP Nurse Practitioner Family; Referring Provider Specialist; Visit Provider Specialist
DX: O48.0 Post-term pregnancy (principal); Z3A.40 40 weeks gestation of pregnancy
CPT/HCPCS: 59025; G0378; G0379

== ENCOUNTER 2020-03-23 16:31 | Outpatient (CLI) | payer OTHER, SELFPAY | END 2020-03-23 18:10 | disposition home or self-care (01) | LOC: LABOR 17:02 → OB 03-24 12:51 | PROVIDERS: PCP Nurse Practitioner Family; Referring Provider Specialist; Visit Provider Specialist | DX: O48.0 Post-term pregnancy (principal); Z3A.40 40 weeks gestation of pregnancy | CPT/HCPCS: 59025; G0378; G0379 ==

== ENCOUNTER 2020-03-23 23:08 | Inpatient (IN) | payer OTHER, SELFPAY ==
[2020-03-24] MEDS: LACTATED RINGERS 1,000 ML 100 ML IV ×2 (01:00→05:08)
[2020-03-24 01:13] LABS: Add Manual Diff / Slide Review NO; Basophils Absolute Auto 100 /uL (0-100); Basophils Percent Auto 0.4 % (0-2); Eosinophils Absolute Auto 100 /uL (0-450); Eosinophils Percent Auto 0.3 % (2-4); Hematocrit 36.8 % (36-46); Hemoglobin 12.4 g/dL (12.0-16.0); Lymphocytes Absolute Auto 2400 /uL (1100-4500); Lymphocytes Percent Auto 10.1 % (25-40); Mean Corpuscular HGB Conc 33.6 % (30-36); Mean Corpuscular Hemoglobin 32.6 PG (26-34); Mean Corpuscular Volume 96.9 fL (80-100); Monocytes Absolute Auto 1000 /uL (0-900); Monocytes Percent Auto 4.3 % (3-14); Neutrophils Absolute Auto 19900 /uL (1500-7000); Neutrophils Percent Auto 84.9 % (50-75); Platelet Count 249 X10^3/uL (150-400); Red Cell Distribution Width 12.8 % (11.6-14.8); White Blood Cell Count 23.4 X10^3/uL (4.5-11.0)
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
--- NOTE | 2020-03-24 09:14 | P.PCNOB_ITS ---
Labor & Delivery Delivery date: 03/24/20 Intrapartal events: Prolonged 2nd Stage > 2.5 hours Delivery monitor: external FHT and external uterine Route of delivery: forceps Indication for instrumentation: maternal exhaustion L&D Laceration Description: Vaginal - 2nd Degree Delivery repair: chromic (3 0) Estimated blood loss (mL): 400 Anesthesia type: Epidural Narrative: Patient arrived on Labor and delivery in active labor after spontaneous rupture membranes clear fluid. She received an epidural catheter for pain control. heart tones category 1 to category 2 throughout labor. The patient pushed for over 2-1/2 hours with no significant change in position of the fetus in the pelvis. Thought to be OP or transverse head position. Patient given options for , forceps, vacuum extraction. Pros and cons reviewed with the patient she decided to go ahead and try forceps delivery. The forceps were easily applied and with 1 push the head was delivered. The rest of the baby was delivered and placed on maternal abdomen. After the cord stopped pulsating the cord was clamped, cut, and cord bloods obtained. The placenta delivered spontaneously, intact, with 3 vessels. There were no cervical or perineal tears. A second-degree vaginal tear was repaired with 3 0 chromic suture in the usual 2 layer fashion. [place] Baby 1: gender: Male Presentation: vertex position: Left Occiput Transverse Placenta delivery description: Spontaneous cord vessel description: 3 Vessels Plan for aftercare: Routine post vacuum assisted vaginal delivery.
[2020-03-24] MEDS: IBUPROFEN 600 MG TABLET PO ×2 (09:48→19:30)
[2020-03-24] MEDS: DERMOPLAST SPRAY 20% 60 ML 1 SPRAY TOP (09:49)
[2020-03-25] MEDS: IBUPROFEN 600 MG TABLET PO ×2 (03:44→11:21)
[2020-03-25 05:01] LABS: Add Manual Diff / Slide Review NO; Basophils Absolute Auto 100 /uL (0-100); Basophils Percent Auto 0.3 % (0-2); Eosinophils Absolute Auto 400 /uL (0-450); Eosinophils Percent Auto 1.8 % (2-4); Hematocrit 29.4 % (36-46); Lymphocytes Absolute Auto 3400 /uL (1100-4500); Lymphocytes Percent Auto 16.7 % (25-40); Mean Corpuscular HGB Conc 34.1 % (30-36); Mean Corpuscular Hemoglobin 32.8 PG (26-34); Mean Corpuscular Volume 96.2 fL (80-100); Monocytes Absolute Auto 1200 /uL (0-900); Monocytes Percent Auto 5.9 % (3-14); Neutrophils Absolute Auto 15300 /uL (1500-7000); Neutrophils Percent Auto 75.3 % (50-75); Platelet Count 194 X10^3/uL (150-400); Red Blood Cell Count 3.06 X10^6/uL (4.0-5.2); Red Cell Distribution Width 12.8 % (11.6-14.8); White Blood Cell Count 20.3 X10^3/uL (4.5-11.0)
[2020-03-25] MEDS: LEVOTHYROXINE 137 MCG TABLET PO (08:33)
[2020-03-25] MEDS: DOCUSATE 100 MG CAPSULE PO (08:33)
--- NOTE | 2020-03-25 09:21 | PM.OBDS.1 ---
Discharge Providers Provider Date of admission: 03/23/20 23:08 Discharge Date: 03/25/20 Primary care physician: KERVIN Willis Consults: 03/24/20 01:01 Consult to Anesthesiology Urgent Comment: Consulting Provider: Anesthesiologist Reason for consultation: Epidural Has provider been notified: No 03/25/20 09:09 Consult to Turret Press Operator Routine Comment: Discharge provider: Nanette Guillermo MD Summary Hospital Course Date Patient Seen: 03/25/20 Time Patient Seen: 09:22 Hospital Course: Patient arrived on Labor and delivery in active labor. She received an epidural catheter for pain control. She pushed for over 2-1/2 hours without significant progress so the delivery was assisted by forceps. A second-degree vaginal tear was repaired. Patient did well . She denies any headaches, scotomata, epigastric pain. She is urinating and ambulating well. Breast-feeding is going well. Peripartum Data Delivery Method: Assisted Delivery (Forceps) Laceration description: Vaginal - 2nd Degree Procedures: Epidural catheter, forceps assisted vaginal delivery, repair of second-degree tear. complications: none 1: Gender: Male Disposition of : home Discharge Diagnosis (1) Vacuum-assisted vaginal delivery: Status: Acute (2) Acute blood loss anemia: Status: Acute Status at Discharge Cognitive/behavioral status at discharge: oriented Functional status at discharge: independent ambulation Overall status at discharge: patient is progressing back to baseline Time Spent with Patient Time attestation: Total time spent providing and/or coordinating discharge services: Time spent: Less than 30 minutes Objective Labs Result Diagrams: 03/25/20 04:15 Labs: Laboratory Results - last 24 hr 03/25/20 04:15 WBC 20.3 H RBC 3.06 L Hgb 10.0 L Hct 29.4 L MCV 96.2 MCH 32.8 MCHC 34.1 RDW 12.8 Plt Count 194 Neut % (Auto) 75.3 H Lymph % (Auto) 16.7 L [place] % (Auto) 5.9 Eos % (Auto) 1.8 L Baso % (Auto) 0.3 Neut # (Auto) 64199 H Lymph # (Auto) 3400 [place] # (Auto) 1200 H Eos # (Auto) 400 Baso # (Auto) 100 Exam Vital Signs (past 8 hours): Patient's blood pressure 100/46, temperature 98.0?, pulse 69 Narrative Exam Narrative: Abdomen is soft, nontender. Uterus is firm, at U, nontender. Mild lochia. Perineum is intact. Extremities without edema and nontender. Patient is O positive, rubella immune, and received Tdap in the 3rd trimester. Discharge Plan Discharge Plan Patient Disposition: Home Discharge comment: Patient will take [id number] iron and stool softeners as well as [id number] ibuprofen Discharge orders & Medications Prescriptions: Continued (DME) [employer] breast Pump and Supplies See Rx Instructions .ROUTE .MEDSUPPLY Qty: 1 RF: 0 prenat.vits,jr,ylf-hqat-dmubp tablet 1 tab PO DAILY RF: 0 levothyroxine 137 mcg tablet 137 mcg PO DAILY Qty: 60 RF: 3 Follow up/Referrals: Jamari Caicedo ARNP [Primary Care Provider] - Nanette Guillermo MD [Physician] - 1 Month Diet/Activity/Treatments Diet: Regular Activity: Nothing in vagina for 4 weeks Skin/Wound/Dressing Care Report to your healthcare provider any signs of infection, such as:: chills, fever and increased pain Visit Report/Discharge Packet Stand Alone Forms: Discharge: Care Discharge Data Primary Care Provider: Jamari Caicedo
[2020-03-25 12:21] VITALS: BP 100/46; PULSE 69; RESP 16; TEMP 36.7
== END 2020-03-25 14:05 | disposition home or self-care (01) | DRG 806 ==
PROVIDERS: Specialist; Admitting Provider Family Medicine; PCP Nurse Practitioner Family; Referring Provider Family Medicine; Visit Provider Family Medicine
DX: O70.1 Second degree perineal laceration during delivery (principal); D62 Acute posthemorrhagic anemia; Z37.0 Single live birth; O63.1 Prolonged second stage (of labor); O99.02 Anemia complicating childbirth; O48.0 Post-term pregnancy; O75.81 Maternal exhaustion complicating labor and delivery; Z3A.41 41 weeks gestation of pregnancy
CPT/HCPCS: 01967; 36415; 59025; 59050; 59400; 85025; 86850; 86900; 86901; G0378; G0379

== ENCOUNTER 2020-04-01 17:24 | Observation (INO) | payer OTHER, SELFPAY ==
[2020-04-01] VITALS (9 sets, daily range): BP systolic 86–151; BP diastolic 54–89; PULSE 75–104; RESP 15–18; TEMP 37.2–38.5; O2SAT 97–99; BMI 27.4
[2020-04-01 18:40] LABS: Add Manual Diff / Slide Review NO; Basophils Absolute Auto 0 /uL (0-100); Basophils Percent Auto 0.3 % (0-2); Eosinophils Absolute Auto 100 /uL (0-450); Eosinophils Percent Auto 0.7 % (2-4); Hematocrit 35.2 % (36-46); Hemoglobin 11.9 g/dL (12.0-16.0); Lymphocytes Absolute Auto 1800 /uL (1100-4500); Lymphocytes Percent Auto 12.1 % (25-40); Mean Corpuscular HGB Conc 33.9 % (30-36); Mean Corpuscular Hemoglobin 32.4 PG (26-34); Mean Corpuscular Volume 95.7 fL (80-100); Monocytes Absolute Auto 800 /uL (0-900); Monocytes Percent Auto 5.2 % (3-14); Neutrophils Absolute Auto 12400 /uL (1500-7000); Neutrophils Percent Auto 81.7 % (50-75); Platelet Count 342 X10^3/uL (150-400); Red Blood Cell Count 3.68 X10^6/uL (4.0-5.2); Red Cell Distribution Width 12.8 % (11.6-14.8); White Blood Cell Count 15.1 X10^3/uL (4.5-11.0)
[2020-04-01 18:51] LABS: Lactate (Lactic Acid) 0.9 mmol/L (0.7-2.1)
[2020-04-01 18:54] LABS: BUN Creatinine Ratio 15.9 (6-22); Blood Urea Nitrogen 14 mg/dL (7-17); C-Reactive Protein Quant 1.4 mg/dL (<1.0); Calcium 8.9 mg/dL (8.4-10.2); Carbon Dioxide 23 mmol/L (22-32); Chloride 104 mmol/L (98-107); Estimated Glomerular Filt Rate > 60.0 mL/min (>60); Glucose 96 mg/dL (70-100); HEMOLYSIS < 15 (0-50); Potassium 4.1 mmol/L (3.4-5.1); Sodium 138 mmol/L (137-145)
--- NOTE | 2020-04-01 18:55 | PC.NURSE ---
pt reports, fever, bodyache, lower abdominal pain, p/p a week ago, still has heavy vaginal bleeding worsen the last 2 days, described as bright red blood vaginal bleeding, denies dizziness,light headedness, also c\o headache, occiput area. denies visual changes, denies nausea, reports, decrease in appetite.
--- NOTE | 2020-04-01 18:57 | PC.NURSE ---
denies coughing,shortness of breath, exposure to covid 19
--- NOTE | 2020-04-01 19:01 | DI.US.S_ITS ---
PROCEDURE: US PELVIC COMPLETE INDICATIONS: RETAINED PRODUCTS / ENDOMETRITIS TECHNIQUE: Real-time scanning was performed of the pelvic organs, with image documentation. COMPARISON: None. FINDINGS: Transabdominal scanning: Limited scanning through the kidneys shows no hydronephrosis. No pathologic free abdominal or pelvic fluid. Endovaginal scanning: Uterus: Uterus is enlarged measuring 15.3 x 5.9 x 11.2 cm. The endometrium is thickened measuring 33.2 mm in combined thickness. There is debris within the endometrial cavity. Ovaries: Ovaries are grossly normal. Right ovary measures 3.0 x 1.5 x 2.5 cm. Left ovary measures 2.0 x 2.1 x 2.1 cm. IMPRESSION: Enlarged uterus consistent with recent . There is marked endometrial thickening with debris within the endometrial cavity. Patient diagnoses include endometritis and retained products of conception. Dictated by: Kathy Garcia M.D. on 04/01/2020 at 19:47 Approved by: Kathy Garcia M.D. on 04/01/2020 at 19:59
[2020-04-01 19:17] LABS: Alanine Aminotransferase 15 IU/L (<35); Aspartate Aminotransferase 22 IU/L (14-36); Lactate Dehydrogenase 432 U/L (313-618); Uric Acid 5.3 mg/dL (2.5-6.2)
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
[2020-04-01] MEDS: SODIUM CHLORIDE 0.9% 1,000 ML 1000 ML IV (20:08)
[2020-04-01] MEDS: CLINDAMYCIN 900 MG/50 ML PIGGYBACK 50 MG IV (20:08)
[2020-04-01] MEDS: GENTAMICIN 330 MG in SODIUM CHLORIDE 0.9% 100 ML 108.25 ML IV (20:08)
[2020-04-01 22:08] LABS: COVID19 -Nasal RAPID Negative (Negative)
[2020-04-01] MEDS: IBUPROFEN 600 MG TABLET PO (22:33)
[2020-04-01] MEDS: SODIUM CHLORIDE 0.9% 1,000 ML 100 ML IV (22:34)
--- NOTE | 2020-04-01 23:32 | PC.NURSE ---
Admit/Evening Shift Note- Patient arrived to room from ER via wheelchair at 2130. Patient alert and oriented and able to make needs known to staff. Admission questions done, meds reviewed, and physical assessment done. Patient oriented to bed and bed controls, room, bathroom, lights, phone, menu, and call ball/tv remote. Safety measure in place. Patient agrees to call for assistance. Patient independent. Call dudley and phone within reach. Will continue to monitor.
[2020-04-02] MEDS: LACTATED RINGERS 1,000 ML 100 ML IV (00:30)
--- NOTE | 2020-04-02 00:58 | PC.NURSE ---
Addendum entered by Jess Harry R.N. 04/02/20 06:01: States she is feeling much better this morning. Pain is still 3/10 but only with movement. Is afebrile. Original Note: Patient is alert and oriented. Breath sounds CTA with RA sat of 97%. HRR. Denies nausea. BT present and abdomen is soft but tender in lower quads; states she is passing flatus. Has burning with urination which she states she was told is due to stitches from episiotomy; chronic urgency. Having vaginal bleeding but no clots. Independent with mobility. Wearing bilateral calf SCD's. Does have some numbness in hands/feet residual still from . Fall risk score is moderate but patient is steady on feet. Dr Mercedes contacted regarding IV antibiotic as Clindamycin was an ER order. Dr Mercedes stated to continue Clindamycin as ordered.
[2020-04-02] MEDS: CLINDAMYCIN 900 MG/50 ML PIGGYBACK 50 MG IV ×2 (03:04→12:05)
[2020-04-02 04:50] VITALS: BP 116/63; PULSE 66; RESP 18; TEMP 36.4; O2SAT 98
[2020-04-02 07:00] VITALS: BP 130/75; PULSE 70; RESP 18; TEMP 36.2; O2SAT 99
[2020-04-02 07:05] LABS: Add Manual Diff / Slide Review NO; Basophils Absolute Auto 0 /uL (0-100); Basophils Percent Auto 0.5 % (0-2); Eosinophils Absolute Auto 100 /uL (0-450); Eosinophils Percent Auto 1.1 % (2-4); Hematocrit 32.5 % (36-46); Hemoglobin 11.4 g/dL (12.0-16.0); Lymphocytes Absolute Auto 1600 /uL (1100-4500); Lymphocytes Percent Auto 18.7 % (25-40); Mean Corpuscular HGB Conc 35.2 % (30-36); Mean Corpuscular Hemoglobin 33.6 PG (26-34); Mean Corpuscular Volume 95.2 fL (80-100); Monocytes Absolute Auto 800 /uL (0-900); Monocytes Percent Auto 9.4 % (3-14); Neutrophils Absolute Auto 6100 /uL (1500-7000); Neutrophils Percent Auto 70.3 % (50-75); Platelet Count 249 X10^3/uL (150-400); Red Blood Cell Count 3.41 X10^6/uL (4.0-5.2); Red Cell Distribution Width 12.8 % (11.6-14.8); White Blood Cell Count 8.7 X10^3/uL (4.5-11.0)
[2020-04-02] MEDS: IBUPROFEN 600 MG TABLET PO (09:18)
[2020-04-02 11:00] VITALS: BP 118/79; PULSE 76; RESP 18; TEMP 36.6; O2SAT 98
--- NOTE | 2020-04-02 11:41 | CM.DANOTE ---
Patient is a 25 year old female who was admitted on 04/01/20 for Pain, post partem. Pt has [employer] for insurance and her PCP is Dr. Jamari Caicedo. EMR was reviewed. Per MD, pt with post endometriosis (one week post ) and is independent at baseline and likely d/c home later today with family support and no identified barriers to discharge. Per RN, pt has been pumping breast milk since her admit since not allowed in the hospital for COVID 19 hospital precautions. No concerns at this time. Plan: SW to follow for likely pt d/c home via family POV later today after antibiotics tolerated. CORNELL Oconnor Discharge Planning/Care Management CM Discharge Assessment Start: 04/02/20 11:40 Freq: Status: Active Protocol: Document 04/02/20 11:40 BF (Rec: 04/02/20 11:41 BF [id number]) Discharge Planning Assessment Assigned Billet Recorder CORNELL Robles DPOA/Assigned Designee Name none Advance Directives? No History Provided By Patient,Medical Record Has Patient been admitted in last 30 Yes days? Comment Labor and delivery a week ago Prior Living Arrangements House Household Members spouse Type of transporation used prior to Drives own vehicle admit Independent with ADL's Yes Is patient alert and oriented? Yes Caregiver for Another Yes: baby Discharge Plan Home Transportation Arrangement Spouse available to provide transport Referrals Initiated None needed Review Status In Process Please Provide Date Initial DC 04/02/20 Assessment Was Performed Next Review Type Continued Stay Review
--- NOTE | 2020-04-02 13:07 | PM.DS.1 ---
History of Present Illness History of Present Illness Date Patient Seen: 04/02/20 Time Patient Seen: 13:07 Date of Onset of Symptoms: 03/30/20 Chief complaint: pain s/p child last week Narrative: Patient was admitted for probable endometritis. She had a fever, abdominal pain, with otherwise normal scanning and evaluation. Patient received IV antibiotics and pain medicine. She has been afebrile and her white blood cell count is decreasing. Her pain has resolved. Patient is urinating and ambulating well. Discharge Providers Provider Date of admission: 04/01/20 20:11 Discharge Date: 04/02/20 Primary care physician: KERVIN Willis Discharge provider: Nanette Guillermo MD Summary Hospital Course Discharge Diagnosis: endometritis Hospital Course: Patient received IV antibiotics and pain medicine. Patient is fever resolved and pain improved. Her white blood cell count improved. Status at Discharge Cognitive/behavioral status at discharge: oriented Functional status at discharge: independent ambulation Overall status at discharge: patient is progressing back to baseline Time Spent with Patient Time spent: Less than 30 minutes Exam Vital Signs (past 8 hours): - 04/02/20 07:00 04/02/20 11:00 Temperature 97.2 F L 97.9 F Pulse Rate 70 76 Respiratory Rate 18 18 Blood Pressure 130/75 118/79 Pulse Oximetry 99 98 Oxygen Delivery Method Room Air Oxygen Flow Rate 0 Narrative Exam Narrative: Patient's abdomen is soft, nontender. Uterus is firm, U -3, nontender. Mild lochia. Extremities without edema and nontender. Objective Labs Result Diagrams: 04/02/20 06:56 04/01/20 18:30 Labs: Laboratory Results - last 24 hr 04/01/20 04/01/20 04/01/20 18:30 18:30 18:30 WBC 15.1 H RBC 3.68 L Hgb 11.9 L Hct 35.2 L MCV 95.7 MCH 32.4 MCHC 33.9 RDW 12.8 Plt Count 342 Neut % (Auto) 81.7 H Lymph % (Auto) 12.1 L Mcdonald % (Auto) 5.2 Eos % (Auto) 0.7 L Baso % (Auto) 0.3 Neut # (Auto) 30860 H Lymph # (Auto) 1800 Mcdonald # (Auto) 800 Eos # (Auto) 100 Baso # (Auto) 0 Sodium 138 Potassium 4.1 Chloride 104 Carbon Dioxide 23 BUN 14 Creatinine 0.88 Estimated GFR > 60.0 BUN/Creatinine Ratio 15.9 Glucose 96 Lactate 0.9 Uric Acid Calcium 8.9 AST ALT Lactate Dehydrogenase C-Reactive Protein 1.4 H COVID-19 PCR 04/01/20 04/01/20 04/01/20 18:35 18:50 18:50 WBC RBC Hgb Hct MCV MCH MCHC RDW Plt Count Neut % (Auto) Lymph % (Auto) Mcdonald % (Auto) Eos % (Auto) Baso % (Auto) Neut # (Auto) Lymph # (Auto) Mcdonald # (Auto) Eos # (Auto) Baso # (Auto) Sodium Potassium Chloride Carbon Dioxide BUN Creatinine Estimated GFR BUN/Creatinine Ratio Glucose Lactate Uric Acid 5.3 Calcium AST 22 ALT 15 Lactate Dehydrogenase 432 C-Reactive Protein COVID-19 PCR Negative Cancelled 04/02/20 06:56 WBC 8.7 RBC 3.41 L Hgb 11.4 L Hct 32.5 L MCV 95.2 MCH 33.6 MCHC 35.2 RDW 12.8 Plt Count 249 Neut % (Auto) 70.3 Lymph % (Auto) 18.7 L Mcdonald % (Auto) 9.4 Eos % (Auto) 1.1 L Baso % (Auto) 0.5 Neut # (Auto) 6100 Lymph # (Auto) 1600 Mcdonald # (Auto) 800 Eos # (Auto) 100 Baso # (Auto) 0 Sodium Potassium Chloride Carbon Dioxide BUN Creatinine Estimated GFR BUN/Creatinine Ratio Glucose Lactate Uric Acid Calcium AST ALT Lactate Dehydrogenase C-Reactive Protein COVID-19 PCR Discharge Plan Discharge Plan Patient Disposition: Home Discharge orders & Medications Prescriptions: New oxycodone 5 mg Tablet 5 mg PO Q6HR PRN (Reason: Pain, Moderate (4-6)) Qty: 15 RF: 0 clindamycin HCl 300 mg capsule 300 mg PO TID Qty: 21 RF: 0 Continued (DME) Double Electric breast Pump and Supplies See Rx Instructions .ROUTE .MEDSUPPLY Qty: 1 RF: 0 prenat.vits,jr,bms-vnfd-mubnt tablet 1 tab PO DAILY RF: 0 levothyroxine 137 mcg tablet 137 mcg PO DAILY Qty: 60 RF: 3 Follow up/Referrals: Jamari Caicedo ARNP [Primary Care Provider] - Nanette Guillermo MD [Physician] - As previously scheduled Diet/Activity/Treatments Diet: Regular Activity: Continue nothing in the vagina until visit Skin/Wound/Dressing Care Report to your healthcare provider any signs of infection, such as:: chills, fever and increased pain Visit Report/Discharge Packet Instructions: Endometriosis (Alternative Therapy), Ibuprofen Discharge Data Primary Care Provider: Jamari Caicedo Attending Provider: Starr Mercedes Admsisi Date/Time: 04/01/20 20:11
== END 2020-04-02 13:45 | disposition home or self-care (01) ==
LOC: ED 19:59 → AC 20:12
PROVIDERS: Admitting Provider Obstetrics & Gynecology; Emergency Provider Emergency Medicine; PCP Nurse Practitioner Family; Referring Provider Emergency Medicine; Visit Provider Obstetrics & Gynecology
DX: O86.12 Endometritis following delivery (principal); R50.9 Fever, unspecified; R51 Headache; R10.30 Lower abdominal pain, unspecified; N93.9 Abnormal uterine and vaginal bleeding, unspecified; Z11.59 Encounter for screening for other viral diseases
CPT/HCPCS: 36415; 76856; 80048; 81003; 83605; 83615; 84450; 84460; 84550; 85025; 86140; 87040; 87635; 96361; 96365; 96366; 96368; 99217; 99219; 99284; 99285; G0378

== ENCOUNTER → 2020-06-26 15:25 | Outpatient (CLI) | payer OTHER, SELFPAY ==
[2020-04-01 21:52] VITALS: BMI 27.4
[2020-06-26 17:20] LABS: Free T4, Direct Thyroxine 1.09 ng/dL (0.78-2.19)
[2020-06-26 17:38] LABS: Thyroid Stimulating Hormone < 0.015 uIU/mL (0.47-4.68)
== END ==
PROVIDERS: PCP Nurse Practitioner Family; Referring Provider Nurse Practitioner Family; Visit Provider Nurse Practitioner Family
DX: E03.9 Hypothyroidism, unspecified (principal)
CPT/HCPCS: 36415; 84439; 84443

== ENCOUNTER → 2020-07-25 13:34 | Outpatient (CLI) | payer OTHER, SELFPAY ==
[2020-04-01 21:52] VITALS: BMI 27.4
[2020-07-25 13:54] LABS: Add Manual Diff / Slide Review NO; Basophils Absolute Auto 100 /uL (0-100); Eosinophils Absolute Auto 200 /uL (0-450); Eosinophils Percent Auto 2.4 % (2-4); Hematocrit 39.4 % (36-46); Hemoglobin 13.6 g/dL (12.0-16.0); Lymphocytes Absolute Auto 2200 /uL (1100-4500); Lymphocytes Percent Auto 34.1 % (25-40); Mean Corpuscular HGB Conc 34.5 % (30-36); Mean Corpuscular Hemoglobin 30.4 PG (26-34); Mean Corpuscular Volume 87.9 fL (80-100); Monocytes Absolute Auto 400 /uL (0-900); Monocytes Percent Auto 6.1 % (3-14); Neutrophils Absolute Auto 3700 /uL (1500-7000); Neutrophils Percent Auto 56.4 % (50-75); Platelet Count 189 X10^3/uL (150-400); Red Blood Cell Count 4.48 X10^6/uL (4.0-5.2); Red Cell Distribution Width 14.1 % (11.6-14.8); White Blood Cell Count 6.6 X10^3/uL (4.5-11.0)
[2020-07-25 14:36] LABS: Thyroid Stimulating Hormone 0.671 uIU/mL (0.47-4.68)
== END ==
PROVIDERS: PCP Nurse Practitioner Family; Referring Provider Obstetrics & Gynecology; Visit Provider Obstetrics & Gynecology
DX: E03.9 Hypothyroidism, unspecified (principal); R10.2 Pelvic and perineal pain; Z87.42 Personal history of other diseases of the female genital tract
CPT/HCPCS: 36415; 84443; 85025

== ENCOUNTER → 2020-07-28 12:15 | Outpatient (CLI) | payer OTHER, SELFPAY ==
[2020-04-01 21:52] VITALS: BMI 27.4
--- NOTE | 2020-07-28 12:16 | DI.US.S_ITS ---
PROCEDURE: US PELVIC COMPLETE INDICATIONS: PAIN Additional history: Breast-feeding. TECHNIQUE: Real-time scanning was performed of the pelvic organs, with image documentation. Additional endovaginal scanning was necessary due to incomplete visualization of the adnexal and endometrial structures by transabdominal scanning. COMPARISON: [facility], , PELVIC COMPLETE, 04/01/2020, 19:22. FINDINGS: Transabdominal scanning: Limited scanning through the kidneys shows no hydronephrosis. No pathologic free abdominal or pelvic fluid. Endovaginal scanning: Uterus: Uterus is anteverted and normal in size at 7.8 x 5.8 x 4.2 cm. No mass. The endometrium measures 14.5 mm in combined thickness. Small endometrial cysts. No increased vascularity. Ovaries: Within normal limits. Right ovary measures 2.6 x 1.5 x 0.9 cm. Left ovary measures 2.9 x 2.8 x 2.7 cm. Left ovarian irregular cyst measuring at 2.2 x 2.1 x 1.8 cm. There is peripheral vascularity. IMPRESSION: 1. Irregular left ovarian cyst measuring 2.2 cm with peripheral vascularity. This most likely represents a hemorrhagic cyst or corpus luteum. 2. Endometrial thickness measuring 15 mm. 3. No significant free fluid. Dictated by: Keagan Kwan M.D. on 07/28/2020 at 14:12 Approved by: Keagan Kwan M.D. on 07/28/2020 at 14:19
== END ==
PROVIDERS: PCP Nurse Practitioner Family; Referring Provider Obstetrics & Gynecology; Visit Provider Obstetrics & Gynecology
DX: N93.9 Abnormal uterine and vaginal bleeding, unspecified (principal); R10.2 Pelvic and perineal pain; N83.202 Unspecified ovarian cyst, left side
CPT/HCPCS: 76830; 76856